=== PATIENT | female | born 1985 | race Caucasian/White ===

== ENCOUNTER → 2016-05-11 | Outpatient (CLI) | payer OTHER ==
--- NOTE | 2016-05-11 17:59 | US ---
Dear Dr. Goins, Thank you for sending your patient, Jinny Buckley, to us for an US and consultation to assess a natomy. As you know, the patient is a 30 y.o. G3, P1011 at 19 weeks and 5 days with an EDC of 10/01/16 based on IUI dating and a 10 week US. Her is complicated by hypothyroidism and maternal ob esity (BMI 46). Jinny's medical history is significant for obesity with a BMI of 46 and hypothyroidism that is well controlled on Levothyroxine 88 mcg daily. Her last TSH was 1.5 in 03/2016. Her OB history is signifi cant for a missed 1st trimester AB treated with Cytotec in 2013 and a term vaginal delivery in 10/2014 . Genetic Screening: She has had Quad Screen results this . The patient denies any uterine contractions, vaginal bleeding, or loss of fluid. Today, she is withou t complaints. US FINDINGS: Number of fetuses: 1 Placental location: Posterior, No previa Placental Cord Insertion: Central presentation: Cephalic Cervix: 4.5 cm, transabdominally MVP: 5.0 cm The adnexa were evaluated. No pathology was seen. Right ovary: Normal Left ovary: Normal heart rate: 140 bpm Measurements: Biparietal diameter: 42 mm, 18 weeks 6 days Head circumference: 171 mm, 19 weeks 5 days Abdominal circumference: 144 mm, 19 weeks 6 days Femur length: 33 mm, 20 weeks 2 days Humerus length: 29 mm, 19 weeks 4 days Transcerebellar diameter: 20 mm, 19 weeks 4 days Average ultrasound age: 19 weeks 5 days Estimated weight: 321 g weight percentile: 66% ANATOMY Supratentorial brain: Normal Cerebral lateral ventricle: 5 mm Posterior fossa: Normal Cisterna magna: 3 mm Nuchal fold: 4.4 mm Lip: Suboptimal Profile: Suboptimal Alveolar Ridge: Suboptimal Spine: Suboptimal Heart: -- 4 Chamber: Normal -- Intraventricular septum: Suboptimal -- Right Outflow Tract: Suboptimal -- Left Outflow Tract: Suboptimal -- 3 Vessel View: Suboptimal -- Aortic Arch: Suboptimal -- Ductal Arch: Suboptimal Diaphragm: Suboptimal Stomach: Normal Abdominal Umbilical Cord Insertion: Normal Right kidney: Normal Left kidney: Normal Bladder: Normal Number of cord vessels: 3 Upper extremities: -- Right Arm: Normal -- Right Hand: Limited -- Left Arm: Normal -- Left Hand: Limited Lower extremities: -- Right Leg: Normal -- Right Foot: Limited -- Left Leg: Normal -- Left Foot: Limited IMPRESSION: 1. Anatomy: The fetus measures appropriate for gestational age, measuring a normal weight and percen tile. Visualization of the fetus today reveals no overt structural anomalies. However, multiple anato manny structures could not be cleared secondary to maternal habitus and position. There is eviden ce of normal amniotic fluid, and movement was seen during the examination. - US to reassess anatomy in 4 weeks 2. Genetic Screening: This patient has had reassuring Quad Screen results this . Today, no m arkers of aneuploidy were seen. While her screening and US results are reassuring, we reviewed that aneuploidy can only be definitively excluded with diagnostic testing via amniocentesis. Af ter this discussion, the patient does not wish to proceed with invasive testing at this time. 3. Maternal Obesity: The patient is at increased risk of macrosomia, gestational diabetes, pree clampsia, delivery, and IUFD based on her weight. We would recommend limited weight gain (<1 0-15 lbs) in this . - Early Glucola with repeat at 26-28 weeks if normal - Consider serial growth US to monitor growth - Close surveillance of maternal blood pressures, urine protein, and symptoms in the third trimester - Limited gestational weight gain Thank you again for sending this patient to see us today. Approximately 12 minutes of a total visit t raúl of 15 minutes were spent with this patient today in direct face to face counseling regarding kenya burns's US findings and the above recommendations. Please feel free to contact me with any questions at . Joselin Huerta MD Maternal- Medicine
--- NOTE | 2016-05-12 09:26 | US ---
Detailed Obstetric Ultrasound May 11, 2016 1048 hours Indication: Evaluate growth and anatomy. Maternal obesity. The estimated gestational age by LMP is 19 weeks and 5 days yielding an EDC of October 01, 2016. Comparison: None relevant. Findings: Number: 1. Presentation: Vertex. Placental location: Posterior. Cervix: 4.5 cm. Maximum vertical pocket: 5.0 cm. heart rate: 140 bpm. Ovaries: Visualized and normal. Biometry: Biparietal diameter: 42 mm 18 weeks, 6 days Head circumference: 170 mm 19 weeks, 5 days Abdominal circumference: 144 mm 19 weeks, 6 days Femur length: 32 mm 20 weeks, 2 days Humerus length: 29 mm 19 weeks, 4 days Transcerebellar diameter: 20 mm 19 weeks, 4 days HC/AC: 1.18(1.09-1.26) FL/BPD: 78% FL/AC: 23% Average ultrasound age: 19 weeks, 5 days EDC based on today's average ultrasound age: September 30, 2016. Estimated weight is 321 grams +/- 47 grams. The estimated weight is at the 66th percentil e based on previous dating. Anatomy Survey: Supratentorial brain: Normal. Posterior fossa: Normal. Spine: Normal. Nuchal fold: Normal. Nose and lips: Suboptimal. Facial profile: Suboptimal. Heart: Suboptimal. Intact interventricular septum. Cardiac outflow tracts: Suboptimal. Stomach: Normal Umbilical cord insertion: Normal Kidneys: Normal, no pyelectasis Bladder: Normal Number of cord vessels: Three Upper extremities: Normal Lower extremities: Normal. Impression: 1. Living dominguez in vertex presentation. Size concordant with dates. The estimated ge stational age by biometry is 19 weeks and 5 days yielding an EDC of September 30, 2016. The estimated gestational age by LMP is 19 weeks and 4 days. 2. Unremarkable anatomy. No anomalies detected. Limited anatomic survey secondary to pos ition and maternal habitus. Please see separate report for maternal medicine consultation.
== END | disposition home or self-care (01) ==
LOC: FIMAGING 10:43
PROVIDERS: ATTEND Obstetrics & Gynecology
DX: O99.212 Obesity complicating pregnancy, second trimester (principal); E66.9 Obesity, unspecified; E03.9 Hypothyroidism, unspecified; Z3A.19 19 weeks gestation of pregnancy; Z68.42 Body mass index [BMI] 45.0-49.9, adult